=== PATIENT | male | born 1970 | race Hispanic/Latino ===

== ENCOUNTER 2018-05-13 07:59 | Outpatient (CLI) | payer OTHER ==
--- NOTE | 2018-05-15 08:15 | Nuclear Medicine Report ---
NUCLEAR MEDICINE THYROID UPTAKE MULTIPLE History: Thyrotoxicosis. Comparison: None at this facility. Findings: Scintigraphic images of the thyroid gland demonstrate homogeneous distribution of the radiotracer bilaterally. No hot or cold nodule is identified. 5 hour uptake measures 10.4%. Normal range 4-18%. 29 hour uptake measures 12.9%. Normal range 18-36%. Impression: No focal hot or cold nodule is identified on scintigraphic. 29 hour uptake values are slightly decreased as described above.
== END 2018-05-13 08:00 | disposition home or self-care (01) ==
LOC: NM 07:59
PROVIDERS: ATTEND Internal Medicine
DX: E05.90 Thyrotoxicosis, unspecified without thyrotoxic crisis or storm (principal)
CPT/HCPCS: 78012; A9516